=== PATIENT | female | born 1945 | race Caucasian/White ===

== ENCOUNTER 2022-05-06 15:07 | Emergency (ER) | payer MEDICARE, SELFPAY ==
[2022-05-06 15:13] VITALS: BP 173/87; PULSE 97; TEMP 35.8; O2SAT 97; BMI 33.5
--- NOTE | 2022-05-06 15:32 | ED.NURSE ---
Sling applied to left arm for comfort.
--- NOTE | 2022-05-06 15:38 | CRLHL7_ITS ---
For Patients: As a result of the Cures Act, medical imaging exams and procedure reports are released immediately into your electronic medical record. You may view this report before your referring provider. If you have questions, please contact your health care provider. Indication: Trauma. Technique: Left shoulder, 3 views. Comparison: None. Findings: Bones: Comminuted impacted fracture of the humeral head.. Joint spaces: Unremarkable. Soft tissues: Soft tissue swelling overlying the fracture site.. Impression: Comminuted impacted fracture of the humeral head. Dictated by Nancy Colón MD @ 05/06/2022 4:31:51 PM (Electronically Signed)
[2022-05-06] MEDS: OXYCODONE 5 MG TABLET PO (16:06)
--- NOTE | 2022-05-06 19:56 | ED_ITS ---
HPI - General Adult General Date Seen: 05/06/22 Chief complaint: Extremity Pain/Injury, Upper Stated complaint: Fall L Side Pain Time Seen by Provider: 05/06/22 15:20 Source: patient Mode of arrival: ambulatory Limitations: no limitations History of Present Illness HPI narrative: Patient is a 69-year-old here with her daughter for evaluation after a fall. She injured her left arm. She denies hitting her head or hurting her neck. She does not have any numbness or loss of function. Primarily pain is at the shoulder. She says when she moves it radiates up toward her neck and down tow marie her elbow, but she does not have pain in those areas primarily. No other injuries or complaints. Related Data Home Medications Medication Instructions Recorded Confirmed elexacaftor 100 mg-tezacaf ea PO 03/17/22 03/17/22 50mg-ivacaf 75mg(d)/ivacaf 150mg(n) tablets (Trikafta) gabapentin 600 mg tablet 600 mg PO 03/17/22 03/17/22 omeprazole 40 mg capsule,delayed 40 mg PO 03/17/22 03/17/22 release topiramate 25 mg tablet 25 mg PO 03/17/22 03/17/22 Previous Rx's Medication Instructions Recorded ciprofloxacin HCl 750 mg tablet 750 mg PO BID #20 tabs 03/17/22 Allergies Allergy/AdvReac Type Severity Reaction Status Date / Time adhesive Allergy Severe Rash Verified 03/17/22 12:21 levofloxacin [From Levaquin] Allergy Unknown Verified 05/06/22 15:15 Review of Systems Status of ROS: Reports: 6 or more systems reviewed and unremarkable except as noted in History and below [facility] Medical History Bacterial infection Cough Cystic fibrosis Social History Smoking Status: Never smoker Exam Narrative: Exam Narrative: Vital signs as noted above. In general, an alert, well-appearing patient. Head: Normocephalic, atraumatic. Eyes: Pupils are equal reactive. Extraocular movements are full. Conjunctivae are normal. ENT: Mucous membranes are moist. Throat is normal. Neck: Supple without lymphadenopathy. Nontender to palpation. Heart: Regular rate and rhythm. No murmur or rub. Lungs: Clear bilaterally. No increased work of breathing, crackles or wheezes. Chest is nontender. Clavicular tenderness. Abdomen: Soft and nontender. No organomegaly. Extremities: On the left, she has her arm in a sling. She has tenderness over the proximal humerus. She does not have any elbow tenderness. Wrist is nontender. Distal CMS is normal. I did not test range of motion secondary to pain at the shoulder. Neurologic: Patient is alert and oriented to person and place. Speech is fluent. Face is symmetric. Moves all extremities equally. Affect: Normal. Skin: Warm and dry. Well perfused. Const: Vital Signs, click to edit/add: Vital Signs - 24 hr 05/06/22 15:13 Temperature 96.5 F L Pulse Rate [Pulse Oximeter] 97 Blood Pressure [Ri ght Upper Arm] 173/87 H Pulse Oximetry 97 Oxygen Delivery Me thod Room Air Documenting provider has reviewed patient's vital signs: yes Course Course Hospital Course: X-rays of the left shoulder confirm a proximal humerus fracture by my review. F yue radiology read is as follows:Impression: Comminuted impacted fracture of the humeral head. She had an oxycodone here. In discussion with her, she says she has oxycodone and Guffey at home which she takes secondary to fibromyalgia. She can use either those, I told her do have a slight preference for use of Tylenol 1000 mg 3 times daily and then oxycodone rather than using Guffey which has Tylenol in it. However, she can use whenever she finds most useful. Orthopedic follow-up in the coming week. Ice liberally. Return as needed. Vital Signs Vital signs: Initial Vital Signs Temperature 96.5 F L 05/06/22 15:13 Temperature Source Temporal Artery Scan 05/06/22 15:13 Pulse Rate 97 05/06/22 15:13 Pulse Strength 3+ Normal 05/06/22 15:13 Blood Pressure 173/87 H 05/06/22 15:13 Blood Pressure Mean 115 05/06/22 15:13 Blood Pressure Position Sitting 05/06/22 15:13 Pulse Oximetry 97 05/06/22 15:13 Oxygen Delivery Method 05/06/22 15:13 Vital Signs Temperature 96.5 F L 05/06/22 15:13 Pulse Rate 97 05/06/22 15:13 Blood Pressure 173/87 H 05/06/22 15:13 Pulse Oximetry 97 05/06/22 15:13 Oxygen Delivery Method 05/06/22 15:13 Temperature 96.5 F L 05/06/22 15:13 Pulse Rate 97 05/06/22 15:13 Blood Pressure 173/87 H 05/06/22 15:13 Pulse Oximetry 97 05/06/22 15:13 Oxygen Delivery Method 05/06/22 15:13 Discharge Plan Discharge Clinical Impression: Fracture of proximal end of left humerus Patient Disposition: Home, Self-Care Condition: Improved Instructions: Arm Fracture in Adults (ED) Additional Instructions: Orthopedic follow-up next week. Pain medications as discussed. You can use your Guffey, or you can take Tylenol 1000 mg 3 times daily and then add oxycodone as needed. Prescriptions: No Action Trikafta 100-50-75 mg(d) /150 mg (n) tablets, sequential PO gabapentin 600 mg tablet 600 mg PO topiramate 25 mg tablet 25 mg PO omeprazole 40 mg capsule,delayed release(DR/EC) 40 mg PO ciprofloxacin HCl 750 mg tablet 750 mg PO BID Qty: 20 0RF Follow Up/Referrals: Provider,Not a Local [Primary Care Provider] - Stand Alone Forms: [employer] Info Instructions
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
== END 2022-05-06 16:54 | disposition home or self-care (01) ==
PROVIDERS: Emergency Provider Emergency Medicine
DX: S42.202A Unspecified fracture of upper end of left humerus, initial encounter for closed fracture (principal); W01.0XXA Fall on same level from slipping, tripping and stumbling without subsequent striking against object, initial encounter
CPT/HCPCS: 73030; 99283; 99284; A9270

== ENCOUNTER 2022-06-29 08:56 | Outpatient (CLI) | payer MEDICARE, SELFPAY | END 2022-06-29 08:57 | disposition home or self-care (01) | LOC: FRMREF 08:57 | PROVIDERS: Visit Provider Family Medicine | DX: Z01.818 Encounter for other preprocedural examination (principal); E84.9 Cystic fibrosis, unspecified; M77.12 Lateral epicondylitis, left elbow | CPT/HCPCS: 80053 ==

== ENCOUNTER 2022-10-03 10:30 | Outpatient (RCR) | payer MEDICARE, SELFPAY ==
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
== END 2022-10-03 13:40 | disposition home or self-care (01) ==
PROVIDERS: Visit Provider Physician Assistant Surgical
DX: S42.202A Unspecified fracture of upper end of left humerus, initial encounter for closed fracture (principal); M25.512 Pain in left shoulder; M54.2 Cervicalgia; Z51.89 Encounter for other specified aftercare
CPT/HCPCS: 97110; 97140; 97161